=== PATIENT | male | born 1985 | race Caucasian/White ===

== ENCOUNTER 2019-05-04 12:12 | Day surgery (SDC) | payer OTHER ==
[2019-05-04] MEDS ORDERED: LIDOCAINE 2% (SDV) 5 ML INJ (17:04)
[2019-05-04] MEDS ORDERED: PROPOFOL 60 ML (17:04)
== END 2019-05-04 18:46 | disposition home or self-care (01) ==
LOC: GIL 12:12
DX: K64.8 Other hemorrhoids (principal); K92.1 Melena
CPT/HCPCS: 45380; 88305